=== PATIENT | female | born 1940 | race Caucasian/White ===

== ENCOUNTER 2016-06-21 14:31 | Inpatient (IN) | payer MEDICARE, OTHER ==
[2016-06-21] MEDS ORDERED: METHYLPREDNISOLONE SOD SUCC/PF 40 MG/ML VIAL IV ONE (14:46)
[2016-06-21] MEDS ORDERED: ALBUTEROL SULFATE/IPRATROPIUM 3 ML NEBU IH ONE ×2 (14:46→14:56)
[2016-06-21] MEDS ORDERED: METHYLPREDNISOLONE SOD SUCC/PF 125 MG/2 ML VIAL ONE (14:49)
--- NOTE | 2016-06-21 14:52 | ERNOTE ---
Dyspnea - General Presenting Symptoms: shortness of breath, wheezing - Patient presents with progressive worsening shortness of breath she states she's had to increase her use of her albuterol breathing nebulizer treatments at home. She also states she's had increased use of her home O2 continuous rather than just at night. Time Seen by Provider: 06/21/16 14:35 Source: patient - Immun/Allergies/Home Medications Immunizations: IMMUNIZATION HX Immunizations Up to Date Yes History of Influenza Vaccine Yes Hx Pneumococcal Vaccination Yes Allergies/Adverse Reactions: Allergies povidone-iodine [From Betadine] Allergy (Unknown, Verified 02/11/16 12:15) pruritis LEXISC[employer] SHEET soap [From Betadine] Allergy (Unknown, Verified 02/11/16 12:15) pruritis L[employer]ISC[employer] SHEET azithromycin [From Zithromax Z-Keenan] Adverse Reaction (Mild, Verified 02/11/16 12 :15) esophageal pain codeine Adverse Reaction (Mild, Verified 02/11/16 12:15) depression iron Adverse Reaction (Mild, Verified 02/11/16 12:15) sensitivity Home Medications: HOME MEDICATIONS Levothyroxine Sodium [Tirosint] 150 mcg PO DAILY 10/02/12 [Last Taken 02/10/16] Metoprolol Succinate [Toprol Xl] 150 mg PO DAILY 10/02/12 [Last Taken 02/10/16] Omeprazole [Prilosec] 20 mg PO BID 10/02/12 [Last Taken 02/10/16] Alendronate Sodium [Fosamax] 70 mg PO Q7D 07/11/14 [Last Taken 07/27/14] metFORMIN HCL [Glucophage] 500 mg PO BID 07/11/14 [Last Taken 02/11/16] Gabapentin 600 mg PO TID 12/02/15 [Last Taken Unknown] Tramadol HCl 50 mg PO Q6H PRN 12/02/15 [Last Taken Unknown] Plaquenil 200 mg PO BID 12/31/15 [Last Taken 02/10/16] ALPRAZolam [Xanax] 0.5 mg PO BID PRN 02/11/16 [Last Taken Unknown] Acetaminophen [Tylenol] 500 mg PO Q3H PRN 02/11/16 [Last Taken Unknown] Albuterol Sulfate 2.5 mg IH Q4H PRN 02/11/16 [Last Taken Unknown] Albuterol Sulfate [Ventolin HFA] 1 - 2 puff IH Q4H PRN 02/11/16 [Last Taken Unknown] Benzonatate [Tessalon Perle] 100 mg PO TID PRN 02/11/16 [Last Taken Unknown] Biotin 1,000 mcg PO DAILY 02/11/16 [Last Taken Unknown] Budesonide [Pulmicort Respules] 2 ml IH BID 02/11/16 [Last Taken Unknown] Calcium Carbonate/Vitamin D3 [Calcium 500-Vit D3 200 Tablet] 1 each PO DAILY [Last Taken Unknown] Cyanocobalamin 500 mcg PO DAILY 02/11/16 [Last Taken Unknown] Diclofenac Sodium/Misoprostol [Arthrotec 75 mg-200 Mcg Tab] 1 each PO BID [Last Taken Unknown] Lidocaine [Lidoderm 5%] 1 patch TP DAILY PRN 02/11/16 [Last Taken Unknown] Montelukast Sodium [Singulair] 10 mg PO HS 02/11/16 [Last Taken Unknown] Nystatin [Mycostatin Powder] 1 appl TP DAILY 02/11/16 [Last Taken Unknown] Fulton-3S/Dha/Epa/Fish Oil/D3 [Fulton-3 + D Softgel] 1 each PO DAILY 02/11/16 [ Last Taken Unknown] Levofloxacin [Levaquin] 500 mg PO DAILY #5 tablet 02/15/16 [Last Taken Unknown] Losartan Potassium [Cozaar] 100 mg PO DAILY #3 tablet 02/15/16 [Last Taken Unknown] predniSONE [Prednisone] 40 mg PO DAILY #8 tablet 02/15/16 [Last Taken Unknown] - History of Present Illness Narrative: States she started to cough up yellowish looking sputum and despite her on nebulizer treatments every 4 hours she feels as though she can't quite get caught up. She is also gone to using her O2 nasal cannula continuously rather than just at night which is her normal mode. Severity: moderate Treatment [employer]: albuterol Initiating event: Reports: none Frequency of episodes: Reports: occassional episodes Modifying Factors - (Improves): Reports: albuterol, oxygen Modifying Factors (Worsens): Reports: activity Review of Systems - Review of Systems Constitutional: Present: See HPI EYE: Present: no symptoms reported ENT: Present: no symptoms reported Respiratory: Present: shortness of breath, cough, wheezing Cardiology: Present: no symptoms reported Gastrointestinal/Abdominal: Present: no symptoms reported Genitourinary: Present: no symptoms reported Musculoskeletal: Present: no symptoms reported Skin: Present: no symptoms reported Neurological: Present: no symptoms reported Endocrine: Present: no symptoms reported Hematologic/Lymphatic: Present: no symptoms reported Psych: Present: no symptoms reported - Patient's Past Medical History Patient History - Medical: Anemia, Arthritis, Diabetes Type 2, GERD, Hypothyroidism, Rheumatoid Arthritis, Other Patient History - Cardiac/Respiratory: COPD Patient History - Cancer: Breast Patient History - Surgical Procedures: Appendectomy, Back Surgery, Cholecystectomy, Colonoscopy, Hysterectomy, Total Knee Replacement Patient History - Other: None LMP (females 10-50): Menopausal - Family History Mother Family History - Medical: Family History - Cardiac/Respiratory: CHF Father Family History - Medical: Family History - Cardiac/Respiratory: CVA/Stroke - Social History Living Situations: alone Abuse History: No History of abuse Psych History: No pertinent hx Smoking Status: Former smoker Alcohol Use: occasionally Drug Use: none - Immunizations Immunizations Up to Date: Yes Hx Pneumococcal Vaccination: Yes History of Influenza Vaccine: Yes Physical Exam - Physical Exam General Appearance: Present: wd/wn, alert, moderate distress Eye Exam: Normal inspection: bilateral, PERRL: bilateral Ears, Nose, Throat: Present: normal ENT inspection, H, normal pharynx Neck: Present: normal inspection, nontender Respiratory: Present: no accessory muscle use, chest nontender, rales, wheezing Cardiovascular/Chest: Present: regular rate, rhythm, no murmur, normal peripheral pulses Gastrointestinal/Abdominal: Present: normal bowel sounds, nontender, nondistended, soft, no organomegaly Rectal Exam: Present: deferred Back Exam: Present: normal inspection, normal range of motion Extremity Exam: Present: normal inspection, non-tender, no edema, normal range of motion Neurological Exam: Present: alert, oriented, normal mood/affect Skin Exam: Present: normal color, warm/dry Lymphatic Exam: Present: no adenopathy ED Progress - Results and Orders Patient's Lab Results:: I have reviewed the patient's lab results. - Vital Signs Patient's Vital Signs:: I have reviewed the patient's vital signs. Vital Signs: Vital Signs 06/21/16 14:37 Temperature 36.4 C L Pulse Rate 80 Respiratory 18 Rate Blood Pressure 195/105 O2 Sat by Pulse 94 Oximetry - X-Ray X-Ray #1 Interpretation: Reviewed by me - Progress/Reassessment Chief Complaint: Dyspnea Progress:: Unchanged Plan - Plan Plan: Patient appears to have failed her outpatient therapy at home despite aggressive pulmonary toilet by herself with oral steroids she is still significantly short of breath with wheezing. Patient will be better served to be brought into the hospital so we can continue the steroids, antibiotics and breathing treatments here. Departure Clinical Impression: COPD (chronic obstructive pulmonary disease) with acute bronchitis - Departure Disposition: [facility] Condition: Fair Referrals: Palma Hart MD [Primary Care Provider] -
[2016-06-21] MEDS ORDERED: METHYLPREDNISOLONE SOD SUCC/PF 125 MG/2 ML VIAL IV ONE (14:55)
[2016-06-21 15:05] LABS: Hematocrit 31.5 % (37.0-47.0); Hemoglobin 9.6 gm/dL (12.5-16.0); Mean Cell Volume 63.6 fl (78-100); Mean Corpuscular Hemoglobin 19.4 pg (27-31); Mean Corpuscular Hgb Conc 30.5 g/dl (32-36); Mean Platelet Volume 8.7 fl (6.0-9.5); Neutrophil # 5.8 K/mm3 (1.3-6.0); Neutrophil % 87.1 % (42-75.0); Platelet Count 202 K/mm3 (150-450); Red Blood Count 4.95 M/mm3 (4.2-5.4); White Blood Count 6.6 K/mm3 (4.0-10.5)
--- OUTSIDE RECORDS SUMMARY | 2016-06-21 15:15 | XMS REPORT | Continuity of Care Document ---
:1940 Author Organization [facility] ([facility]) [place] [address] Phone [phone] Care Team Providers Name Role Phone Dilan Morgan A Primary Care Provider [phone] Source Comments This disclosure is being made pursuant to the Care Everywhere program, applicable federal and state laws, and may not contain all informaitonavailable regarding this patient.[facility] ([facility]) Active Allergies and Adverse Reactions No Known Allergies Current Medications Not on file Active Problems Not on file Social History Tobacco Use Types Packs/Day Years Used Date Never Assessed Last Filed Vital Signs Vital Sign Reading Time Taken Blood Pressure 141/84 10/09/2008 11:10 AM CDT Pulse 54 10/09/2008 11:10 AM CDT Temperature 36.4 C (97.5 F) 10/09/2008 11:10 AM CDT Respiratory Rate 16 10/09/2008 11:10 AM CDT Height 1.627 m (5' 4.06") 10/09/2008 11:10 AM CDT Weight 85.7 kg (188 lb 15 oz) 10/09/2008 11:10 AM CDT Body Mass Index 32.37 10/09/2008 11:10 AM CDT Oxygen Saturation 94% 10/09/2008 11:10 AM CDT Plan of Care Health Maintenance Due Date Last Done Comments Hepatitis B Vaccine (1 of 3 - Primary Series) 1940 Tdap Vaccine 06/14/1950 Lipid Disorder Screening 06/14/1957 Td Vaccine 06/14/1957 Mammogram 1979 Colonoscopy 06/14/1989 Zoster Vaccine 1999 Osteoporosis Screening (DXA Bone Density) 06/14/2004 Pneumococcal Vaccine (1 of 2 - PCV13) 06/14/2004 Influenza Vaccine: Seasonal (#1) 10/26/2015 Results from Last 3 Months Not on file
[2016-06-21 15:25] LABS: ALT 17 U/L (19-67); AST 17 U/L (0-48); Albumin * 3.8 gm/dl (3.4-5.0); Alkaline Phosphatase * 50 U/L (50-170); Anion Gap 12.8 mmol/L (6.8-13.8); BUN/Creatinine Ratio 20.5 (9.0-21.6); Bilirubin, Total 0.3 mg/dL (0.0-1.1); Blood Urea Nitrogen 17 mg/dL (3-23); Ca. Corrected For Albumin 9.2 mg/dL (8.4-10.2); Calcium * 9.4 mg/dL (7.9-10.9); Carbon Dioxide 30.8 mmol/L (24-32.6); Chloride 94 mmol/L (97-106); Glucose * 134 mg/dL (70-110); Magnesium 1.4 mg/dL (1.2-2.8); Potassium 4.6 mmol/L (3.4-4.6); Sodium 133 mmol/L (132-142); Troponin I Less than 0.017 ng/ml (0.00-0.10)
--- OUTSIDE RECORDS SUMMARY | 2016-06-21 16:08 | XMS REPORT | Continuity of Care Document ---
:1940 Author Organization [facility] ([facility]) Address [place] [address] Phone [phone] Care Team Providers Name Role Phone Dilan Morgan A Primary Care Provider [phone] Source Comments This disclosure is being made pursuant to the Care Everywhere program, applicable federal and state laws, and may not contain all informaitonavailable regarding this patient.[facility] ([facility]) Active Allergies and Adverse Reactions No Known [...]
[2016-06-21] MEDS ORDERED: ALBUTEROL SULFATE 2.5 MG/3 ML VIAL.NEB IH ONE ×2 (18:28→21:48)
[2016-06-21] MEDS ORDERED: metFORMIN HCL 500 MG TABLET ONE (18:28)
[2016-06-21] MEDS: NORMAL SALINE 1,000 ML IV PRN (20:49)
[2016-06-21] MEDS: METOPROLOL SUCCINATE 100 MG TABLET.SA PO SCH (21:06)
[2016-06-21] MEDS: metFORMIN HCL 500 MG TABLET PO SCH (21:06)
[2016-06-21] MEDS: ALBUTEROL SULFATE 2.5 MG/3 ML VIAL.NEB IH PRN (21:50)
[2016-06-21] MEDS ORDERED: ACETAMINOPHEN 500 MG TABLET PO PRN (22:22)
[2016-06-21] MEDS ORDERED: ALBUTEROL SULFATE 60 PUFF INHALER IH PRN (22:29)
[2016-06-21] MEDS ORDERED: AZITHROMYCIN 250 MG TABLET PO ONE (22:30)
[2016-06-21] MEDS ORDERED: AZITHROMYCIN 250 MG TABLET ONE (22:32)
[2016-06-21] MEDS: ALPRAZolam 0.5 MG TABLET PO PRN (22:41)
[2016-06-22] MEDS: METHYLPREDNISOLONE SOD SUCC 80 MG in WATER FOR INJ.,BACTERIOSTATIC 0 ML IV SCH ×3 (00:32→19:19)
[2016-06-22] MEDS: ALBUTEROL SULFATE 2.5 MG/3 ML VIAL.NEB IH PRN ×6 (02:33→22:19)
[2016-06-22] MEDS: traMADol HCL 50 MG TABLET PO PRN ×2 (05:46→17:18)
[2016-06-22] MEDS: LEVOTHYROXINE SODIUM 150 MCG TABLET PO SCH (06:28)
[2016-06-22] MEDS: PANTOPRAZOLE SODIUM 20 MG TABLET.DR PO SCH (06:28)
[2016-06-22] MEDS ORDERED: METHYLPREDNISOLONE SOD SUCC 80 MG in WATER FOR INJ.,BACTERIOSTATIC 0 ML IV SCH (08:30)
[2016-06-22] MEDS: LOSARTAN POTASSIUM 50 MG TABLET PO SCH (08:59)
[2016-06-22] MEDS: MISOPROSTOL 200 MCG TABLET PO SCH ×2 (09:00→20:40)
[2016-06-22] MEDS: metFORMIN HCL 500 MG TABLET PO SCH ×2 (09:01→17:19)
[2016-06-22] MEDS: HYDROCHLOROTHIAZIDE 25 MG TABLET PO SCH (09:02)
[2016-06-22] MEDS: HYDROXYCHLOROQUINE SULFATE 200 MG TABLET PO SCH (09:03)
[2016-06-22] MEDS: METOPROLOL SUCCINATE 100 MG TABLET.SA PO SCH (09:03)
[2016-06-22] MEDS: DICLOFENAC SODIUM 75 MG TABLET.DR PO SCH ×2 (09:04→20:41)
--- NOTE | 2016-06-22 13:05 | HP ---
Chief Complaint - Chief Complaint Date of Service: 06/22/16 Time of Service: 12:54 Chief Complaint: increasing SOB/wheezing History of Present Illness: This is Dr. Hart dictating a late entry on Zara Chavez. I was here, yesterday, 06/21/2016, dictating the history of present illness of Zara Chavez , when the [employer] had a down time and shut down by itself from 4p.m. to 11 p.m. Zara Chavez, is a 76-year-old, white female with previous medical history of COPD , hypertension, hyperlipidemia, beta thalassemia trait, rheumatoid arthritis, who 4 days prior to admission, started having increasing shortness of breath. This was associated with cough productive of whitish to yellowish phlegm. She started getting more wheezy and she did increase her inhalers and nebulizers but they did not help. She went to emergency room where she was admitted under our acute COPD exacerbation protocol.. - Patient's Past Medical History Patient History - Medical: Anemia, Arthritis, Diabetes Type 2, GERD, Hypothyroidism, Rheumatoid Arthritis, Other Patient History - Cardiac/Respiratory: COPD Patient History - Cancer: Breast Patient History - Surgical Procedures: Appendectomy, Back Surgery, Cholecystectomy, Colonoscopy, Hysterectomy, Total Knee Replacement Patient History - Other: None LMP (females 10-50): Menopausal - Family History Mother Family History - Medical: Family History - Cardiac/Respiratory: CHF Family History - Cancer: No pertinent family hx Father Family History - Medical: Family History - Cardiac/Respiratory: CVA/Stroke Family History - Cancer: No pertinent family hx - Social History Living Situations: alone Abuse History: No History of abuse Psych History: No pertinent hx Smoking Status: Former smoker Have you smoked in the past 12 months: Yes Do you dip or chew tobacco: No Patient requests Smoking Cessation Consult: No Initiate information on Smoking Cessation: No Alcohol Use: occasionally Drug Use: none - Immunizations Immunizations Up to Date: Yes Hx Pneumococcal Vaccination: Yes History of Influenza Vaccine: Yes Review Of Systems (GEN) - Review of Systems Generalized/Overall Review: Absent: Chills, Fever EENTM: Present: No Symptoms Reported Respiratory: Present: Cough, Shortness of Breath, Wheezing Cardiac: Absent: Chest Pain, Edema, Palpitations Abdominal: Absent: Nausea, Vomiting Genitourinary: Absent: Urgency, Frequency Allergies/Adverse Reactions: Allergies Allergy/AdvReac Type Severity Reaction Status Date / Time povidone-iodine Allergy Unknown pruritis Verified 06/21/16 16:56 [From Betadine] soap [From Betadine] Allergy Unknown pruritis Verified 06/21/16 16:56 azithromycin AdvReac Mild esophageal Verified 06/21/16 16:56 [From Zithromax Z-Keenan] pain codeine AdvReac Mild depression Verified 06/21/16 16:56 iron AdvReac Mild sensitivity Verified 06/21/16 16:56 Home Medications: HOME MEDICATIONS Levothyroxine Sodium [Tirosint] 150 mcg PO DAILY 10/02/12 [Last Taken 02/10/16] Metoprolol Succinate [Toprol Xl] 150 mg PO HS 10/02/12 [Last Taken 02/10/16] Omeprazole [Prilosec] 20 mg PO BID 10/02/12 [Last Taken 02/10/16] Alendronate Sodium [Fosamax] 70 mg PO Q7D 07/11/14 [Last Taken 07/27/14] metFORMIN HCL [Glucophage] 500 mg PO BID 07/11/14 [Last Taken 02/11/16] ALPRAZolam [Xanax] 0.5 mg PO BID PRN 02/11/16 [Last Taken Unknown] Acetaminophen [Tylenol] 500 mg PO Q3H PRN 02/11/16 [Last Taken Unknown] Albuterol Sulfate 2.5 mg IH Q4H PRN 02/11/16 [Last Taken Unknown] Albuterol Sulfate [Ventolin HFA] 1 - 2 puff IH Q4H PRN 02/11/16 [Last Taken Unknown] Benzonatate [Tessalon Perle] 100 mg PO TID PRN 02/11/16 [Last Taken Unknown] Budesonide [Pulmicort Respules] 2 ml IH BID 02/11/16 [Last Taken Unknown] Calcium Carbonate/Vitamin D3 [Calcium 500-Vit D3 200 Tablet] 1 each PO DAILY [Last Taken Unknown] Cyanocobalamin 500 mcg PO DAILY 02/11/16 [Last Taken Unknown] Diclofenac Sodium/Misoprostol [Arthrotec 75 mg-200 Mcg Tab] 1 each PO BID [Last Taken Unknown] Lidocaine [Lidoderm 5%] 1 patch TP DAILY PRN 02/11/16 [Last Taken Unknown] Montelukast Sodium [Singulair] 10 mg PO HS 02/11/16 [Last Taken Unknown] Nystatin [Mycostatin Powder] 1 appl TP DAILY 02/11/16 [Last Taken Unknown] Leslie-3S/Dha/Epa/Fish Oil/D3 [Leslie-3 + D Softgel] 1 each PO DAILY 02/11/16 [ Last Taken Unknown] Gabapentin [Neurontin] 600 mg PO TID 06/22/16 [Last Taken Unknown] Hydroxychloroquine Sulfate [Plaquenil] 400 mg PO DAILY 06/22/16 [Last Taken Unknown] Olmesartan/Hydrochlorothiazide [Benicar Hct 40-25 mg Tablet] 1 each PO DAILY [Last Taken Unknown] traMADol HCL [Ultram] 50 mg PO Q6H PRN 06/22/16 [Last Taken Unknown] Exam - Exam Vital Signs: Vital Signs - Last Taken Temp 36.6 C 06/22/16 11:00 Pulse 81 06/22/16 11:00 Resp 18 06/22/16 11:00 BP 175/94 06/22/16 11:00 Pulse Ox 91 06/22/16 11:00 Constitutional: Present: Alert, Oriented x3, Cooperative, Moderate distress ENT Exam: Present: hearing grossly normal Eye Exam: bilateral eye: normal inspection, PERRL, EOMI Neck: Present: supple Back Exam: Present: normal inspection Respiratory: Present: decreased breath sounds, wheezing, expiration (prolonged) Cardiovascular/Chest: Present: regular rate, rhythm, no JVD, no murmur Abdomen: Present: Normal bowel sounds, soft, nontender, nondistended Extremity: Present: no calf tenderness, pedal edema Diagnostic Studies: Laboratory Results WBC 6.6 K/mm3 (4.0-10.5) 06/21/16 15:00 RBC 4.95 M/mm3 (4.2-5.4) 06/21/16 15:00 Hgb 9.6 gm/dL (12.5-16.0) L 06/21/16 15:00 Hct 31.5 % (37.0-47.0) L 06/21/16 15:00 MCV 63.6 fl (78-100) L 06/21/16 15:00 MCH 19.4 pg (27-31) L 06/21/16 15:00 MCHC 30.5 g/dl (32-36) L 06/21/16 15:00 RDW 16.0 % (11.5-14.0) H 06/21/16 15:00 Plt Count 202 K/mm3 (150-450) 06/21/16 15:00 MPV 8.7 fl (6.0-9.5) 06/21/16 15:00 Immature Gran % (Auto) 0.80 % (0.001-0.429) H 06/21/16 15:00 Immature Gran # (Auto) 0.05 K/mm3 (0.000-0.0310) H 06/21/16 15:00 Neutrophils % 87.1 % (42-75.0) H 06/21/16 15:00 Lymphocytes % 5.1 % (20-51) L 06/21/16 15:00 Monocytes % 6.7 % (0.0-9) 06/21/16 15:00 Eosinophils % 0.0 % (0.0-3.0) 06/21/16 15:00 Basophils % 0.3 % (0.0-1.0) 06/21/16 15:00 Nucleated RBC % 0.0 k/mm3 (0-1) 06/21/16 15:00 Neutrophils # 5.8 K/mm3 (1.3-6.0) 06/21/16 15:00 Lymphocytes # 0.3 k/mm3 (1.5-3.5) L 06/21/16 15:00 Monocytes # 0.4 k/mm3 (0.0-1.0) 06/21/16 15:00 Eosinophils # 0.0 k/mm3 (0.0-0.7) 06/21/16 15:00 Absolute Basophils 0.0 k/mm3 (0.0-0.1) 06/21/16 15:00 pCO2 47.9 mmHg (32.0-45.0) H 06/21/16 15:40 pO2 86.6 mmHg (83.0-108.0) 06/21/16 15:40 HCO3 27.7 mmol/L (21.0-28.0) 06/21/16 15:40 Total CO2 29.2 mmol/L (19.0-24.0) H 06/21/16 15:40 Base Excess 2.1 mmol/L (-2.0-3.0) 06/21/16 15:40 ABG pH 7.38 (7.35-7.45) 06/21/16 15:40 ABG O2 Sat (Measured) 96.3 % (94.0-98.0) 06/21/16 15:40 Sodium 133 mmol/L (132-142) 06/21/16 15:00 Plasma Sodium 134 mmol/L (130-142) 06/21/16 15:00 Potassium 4.6 mmol/L (3.4-4.6) 06/21/16 15:00 Chloride 94 mmol/L (97-106) L 06/21/16 15:00 Carbon Dioxide 30.8 mmol/L (24-32.6) 06/21/16 15:00 Anion Gap 12.8 mmol/L (6.8-13.8) 06/21/16 15:00 BUN 17 mg/dL (3-23) 06/21/16 15:00 Creatinine 0.83 mg/dL (0.4-1.4) 06/21/16 15:00 Est GFR (Non-Af Amer) 71 mL/min (60-130) 06/21/16 15:00 BUN/Creatinine Ratio 20.5 (9.0-21.6) 06/21/16 15:00 Random Glucose 134 mg/dL (70-110) H 06/21/16 15:00 Calcium 9.4 mg/dL (7.9-10.9) 06/21/16 15:00 Calcium Adj for Albumin 9.2 mg/dL (8.4-10.2) 06/21/16 15:00 Magnesium 1.4 mg/dL (1.2-2.8) 06/21/16 15:00 Total Bilirubin 0.3 mg/dL (0.0-1.1) 06/21/16 15:00 AST 17 U/L (0-48) 06/21/16 15:00 ALT 17 U/L (19-67) L 06/21/16 15:00 Alkaline Phosphatase 50 U/L (50-170) 06/21/16 15:00 Troponin I Less than 0.017 ng/ml (0.00-0.10) 06/21/16 15:00 Total Protein 7.0 gm/dL (6.2-8.2) 06/21/16 15:00 Albumin 3.8 gm/dl (3.4-5.0) 06/21/16 15:00 Assessment/Plan - Assessment/Plan (1) Acute exacerbation of chronic obstructive pulmonary disease (COPD) Assessment: will start IV solumedrol, IV antibiotics, and breathing treatments. Problem: Acute (2) Anemia, hemolytic, thalassemia minor Assessment: stable Problem: Chronic (3) GERD (gastroesophageal reflux disease) Assessment: will continue her home meds Problem: Chronic Qualifiers: Esophagitis presence: without esophagitis Qualified Code(s): K21.9 - Gastro -esophageal reflux disease without esophagitis (4) Hyperlipidemia Assessment: continue with home meds Problem: Chronic Qualifiers: (5) Hypertension Assessment: continue with home meds. may need to add additional BP med if not controlled. Problem: Chronic Qualifiers: Hypertension type: essential hypertension (6) Hypothyroidism Assessment: continue with home meds. Problem: Chronic Qualifiers: Hypothyroidism type: acquired
[2016-06-22] MEDS: ALPRAZolam 0.5 MG TABLET PO PRN ×2 (13:39→23:27)
--- NOTE | 2016-06-22 15:08 | PN ---
Subjective - Date and Time Seen Date: 06/22/16 Time: 15:03 Subjective Narrative: Patient is saturating only 85% on RA. She was gasping/panting just going to the BR from her bed. Objective - Review of Systems Generalized/Overall Review: Denies: Chills, Fever EENTM: Reports: No Symptoms Reported Respiratory: Reports: Cough, Shortness of Breath, Wheezing Cardiac: Denies: Chest Pain, Edema, Palpitations Abdominal: Denies: Nausea, Vomiting Genitourinary Symptoms: Denies: Urgency, Frequency - Vitals Vitals: Last Vital Signs Temp 36.6 C 06/22/16 11:00 Pulse 84 06/22/16 14:05 Resp 24 H 06/22/16 14:05 BP 175/94 06/22/16 11:00 Pulse Ox 97 06/22/16 13:57 - Exam Constitutional: Present: Alert, Oriented x3, Cooperative, Moderate distress ENT Exam: Present: hearing grossly normal Neck: Present: supple Breasts: Present: Exam deferred Respiratory: Present: decreased breath sounds, wheezing, expiration (prolonged) , No rales Cardiovascular/Chest: Present: regular rate, rhythm, no JVD, no murmur Abdomen: Present: Normal bowel sounds, soft, nontender, nondistended Extremity: Present: no calf tenderness, pedal edema Assessment/Plan - Problems/Diagnosis (1) Acute exacerbation of chronic obstructive pulmonary disease (COPD) Problem: Acute Narrative: continue with present management. will increase her solumedrol to q 6 hours. give nebs q 2 hours PRN in between her RT q 4 hours.will change her to acute status. (2) Anemia, hemolytic, thalassemia minor Problem: Chronic (3) GERD (gastroesophageal reflux disease) Problem: Chronic Qualifiers: Esophagitis presence: without esophagitis Qualified Code(s): K21.9 - Gastro -esophageal reflux disease without esophagitis (4) Hyperlipidemia Problem: Chronic Qualifiers: (5) Hypertension Problem: Chronic Qualifiers: Hypertension type: essential hypertension Qualified Code(s): I10 - Essential (primary) hypertension Narrative: will increase her metorpolol Xl to 150 mg PO qd. (6) Hypothyroidism Problem: Chronic Qualifiers: Hypothyroidism type: acquired Qualified Code(s): E03.9 - Hypothyroidism, unspecified
[2016-06-22] MEDS ORDERED: ALBUTEROL SULFATE 2.5 MG/3 ML VIAL.NEB IH ONE (18:06)
[2016-06-22] MEDS: AZITHROMYCIN 250 MG TABLET PO SCH (20:40)
[2016-06-22] MEDS: NORMAL SALINE 1,000 ML IV PRN (22:03)
[2016-06-22] MEDS: hydrALAZINE HCL 20 MG/ML VIAL IV PRN (23:27)
[2016-06-23] MEDS: METHYLPREDNISOLONE SOD SUCC 80 MG in WATER FOR INJ.,BACTERIOSTATIC 0 ML IV SCH ×4 (00:11→21:37)
[2016-06-23] MEDS: ALBUTEROL SULFATE 2.5 MG/3 ML VIAL.NEB IH PRN ×8 (00:21→23:28)
--- NOTE | 2016-06-23 03:44 | PN ---
Progess Note - Interim Narrative: 06/23/16 03:39 patient with reports of increased dyspnea on exertion. Her condition improved with nebulizer treatment, solumedrol and supplemented oxygen. BP improved after a dose of hydralazine 20mg IV x1, repeated ABG noted will continue to monitor.
[2016-06-23] MEDS: traMADol HCL 50 MG TABLET PO PRN (03:54)
[2016-06-23] MEDS: ALPRAZolam 0.5 MG TABLET PO PRN ×2 (06:46→08:14)
[2016-06-23] MEDS: PANTOPRAZOLE SODIUM 20 MG TABLET.DR PO SCH (06:47)
[2016-06-23] MEDS: LEVOTHYROXINE SODIUM 150 MCG TABLET PO SCH (06:48)
[2016-06-23] MEDS: hydrALAZINE HCL 20 MG/ML VIAL IV PRN (06:50)
[2016-06-23] MEDS: BUDESONIDE 0.5 MG/2 ML VIAL.NEB IH SCH ×2 (06:59→18:08)
[2016-06-23] MEDS ORDERED: ALPRAZolam 0.5 MG TABLET PO PRN (07:58)
[2016-06-23] MEDS: MISOPROSTOL 200 MCG TABLET PO SCH ×2 (08:04→21:39)
[2016-06-23] MEDS: METOPROLOL SUCCINATE 100 MG TABLET.SA PO SCH (08:05)
[2016-06-23] MEDS: DICLOFENAC SODIUM 75 MG TABLET.DR PO SCH ×2 (08:05→21:39)
[2016-06-23] MEDS: HYDROXYCHLOROQUINE SULFATE 200 MG TABLET PO SCH (08:06)
[2016-06-23] MEDS: LOSARTAN POTASSIUM 50 MG TABLET PO SCH (08:06)
[2016-06-23] MEDS: HYDROCHLOROTHIAZIDE 25 MG TABLET PO SCH (08:06)
[2016-06-23] MEDS: metFORMIN HCL 500 MG TABLET PO SCH ×2 (08:13→16:11)
[2016-06-23] MEDS: amLODIPine BESYLATE 5 MG TABLET PO SCH (08:13)
--- NOTE | 2016-06-23 08:58 | PN ---
Subjective - Date and Time Seen Date: 06/23/16 Time: 08:52 Subjective Narrative: Mrs. Chavez did not sleep well overnight. She reported increasing dyspnea. She was hypertensive and received 20 mg of IV hydralazine. After this dose, her blood pressure dropped to 99/63. She is not dizzy. Blood glucose has been well controlled despite SoluMedrol. She has no N/V. ABG was obtained which showed normal PCO2, but decreased PO2. No cough noted. Objective Objective Narrative: She reports dyspnea, tachypnea, increased work of breathing. - Review of Systems EENTM: Reports: No Symptoms Reported Respiratory: Reports: Shortness of Breath, Wheezing Genitourinary Symptoms: Reports: No Symptoms Reported Musculoskeletal Complaints: Reports: No Symptoms Reported Neurological: Reports: No Symptoms Reported Skin: Reports: No Symptoms Reported Endocrine: Reports: No Symptoms Reported - Vitals Vitals: Last Vital Signs Temp 36.3 C L 06/23/16 06:23 Pulse 77 06/23/16 08:13 Resp 24 H 06/23/16 07:07 BP 174/106 06/23/16 08:13 Pulse Ox 88 L 06/23/16 06:57 - Abnormal Lab Findings Abnormal Lab Findings: Abnormal Lab Results 06/23/16 Range/Units 00:05 pO2 61.4 L (83.0-108.0) mmHg Total CO2 26.6 H (19.0-24.0) mmol/L ABG O2 Sat (Measured) 91.1 L (94.0-98.0) % - Exam Constitutional: Present: Alert, Oriented x3, Cooperative, Mild distress - Related to dyspnea. ENT Exam: Present: hearing grossly normal Neck: Present: non-tender, full range of motion Respiratory: Present: decreased breath sounds - Decreased breath sounds with wheezing. Using abdominal muscles to breathe., accessory muscle use, wheezing Abdomen: Present: Normal bowel sounds, distended Extremity: Present: normal range of motion, non-tender, no pedal edema Skin Exam: Present: normal color, warm/dry Lymphatic: Present: no adenopathy Neurologic: Present: shot hole shooter II-XII nml as tested Appearance: Present: appropriate appearance, appropriate insight Eye contact: Present: good eye contact Thoughts: Present: other - Anxious. Assessment/Plan - Problems/Diagnosis (1) Acute exacerbation of chronic obstructive pulmonary disease (COPD) Problem: Acute Narrative: Continue Solumedrol 80 mg IV every 6 hours. She is currently on ceftriaxone 1g IV daily and azithromycin 250 mg po daily. Continue nebulizer treatments every 4 hours. Consider using CPAP due to increased work of breathing. Increase alprazolam to 0.5 mg TID to decrease symptoms of anxiety and air hunger. (2) GERD (gastroesophageal reflux disease) Problem: Chronic Qualifiers: Esophagitis presence: without esophagitis Qualified Code(s): K21.9 - Gastro -esophageal reflux disease without esophagitis Narrative: Protonix 20 mg po daily. (3) Hypertension Problem: Chronic Qualifiers: Hypertension type: essential hypertension Qualified Code(s): I10 - Essential (primary) hypertension Narrative: Continue losartan 100 mg po daily, metoprolol succinate 150 mg po daily, HCTZ 25 mg daily. Adding amlodipine 5 mg po daily and may titrate up. Discontinue PRN hydralazine. (4) Hypothyroidism Problem: Chronic Qualifiers: Hypothyroidism type: acquired Qualified Code(s): E03.9 - Hypothyroidism, unspecified Narrative: Levothyroxine 150 mcg daily. (5) Rheumatoid arthritis Problem: Chronic Qualifiers: Rheumatoid arthritis location: hand Rheumatoid factor presence: with rheumatoid factor Laterality: bilateral Qualified Code(s): M05.741 - Rheumatoid arthritis with rheumatoid factor of right hand without organ or systems involvement; M05.742 - Rheumatoid arthritis with rheumatoid factor of left hand without organ or systems involvement Narrative: Plaquenil 400 mg po BID. She is also using diclofenac 75 mg BID.
[2016-06-23] MEDS: ALPRAZolam 0.5 MG TABLET PO SCH ×3 (09:54→16:12)
[2016-06-23] MEDS: ENOXAPARIN SODIUM 40 MG/0.4 ML SYRG SC SCH (11:21)
[2016-06-23] MEDS ORDERED: ALPRAZolam 0.5 MG TABLET PO SCH (18:00)
[2016-06-23] MEDS ORDERED: ENALAPRILAT DIHYDRATE 1.25 MG/ML VIAL IV ONE (19:02)
[2016-06-23] MEDS ORDERED: ACETAMINOPHEN 325 MG TABLET PO PRN (19:03)
[2016-06-23] MEDS ORDERED: POLYVINYL ALCOHOL 150 DROP BTL EACHEYE PRN (19:03)
[2016-06-23] MEDS ORDERED: BISACODYL 10 MG SUPP.RECT RC PRN (19:03)
[2016-06-23] MEDS ORDERED: ONDANSETRON HCL/PF 2 MG/ML VIAL IV PRN (19:03)
[2016-06-23] MEDS ORDERED: ALBUTEROL SULFATE/IPRATROPIUM 3 ML NEBU IH PRN (19:03)
[2016-06-23] MEDS ORDERED: CODEINE PHOSPHATE/GUAIFENESIN 5 ML UDC PO PRN (19:03)
[2016-06-23] MEDS: MORPHINE SULFATE 10 MG/0.5 ML SYRINGE PO PRN ×3 (19:45→23:17)
[2016-06-23] MEDS: LORazepam 2 MG/ML DISP.SYRIN IV PRN ×3 (21:33→23:53)
[2016-06-23] MEDS: AZITHROMYCIN 250 MG TABLET PO SCH (21:39)
[2016-06-23] MEDS: SCOPOLAMINE HYDROBROMIDE 1.5 MG PATC TD SCH (21:57)
[2016-06-23] MEDS ORDERED: MORPHINE SULFATE 2 MG/ML DISP.SYRIN IV PRN (23:52)
[2016-06-24] MEDS ORDERED: LORazepam 2 MG/ML DISP.SYRIN IV ONE (00:15)
[2016-06-24] MEDS ORDERED: MORPHINE SULFATE 4 MG/ML SYRG ONE (00:51)
[2016-06-24] MEDS: MORPHINE SULFATE 2 MG/ML DISP.SYRIN IV PRN ×2 (01:00→05:08)
[2016-06-24] MEDS: LORazepam 2 MG/ML DISP.SYRIN IV PRN ×8 (01:00→18:28)
[2016-06-24] MEDS: METHYLPREDNISOLONE SOD SUCC 80 MG in WATER FOR INJ.,BACTERIOSTATIC 0 ML IV SCH ×4 (01:24→18:29)
[2016-06-24] MEDS: BUDESONIDE 0.5 MG/2 ML VIAL.NEB IH SCH ×2 (06:23→18:24)
[2016-06-24] MEDS: LEVOTHYROXINE SODIUM 150 MCG TABLET PO SCH (06:59)
[2016-06-24] MEDS: PANTOPRAZOLE SODIUM 20 MG TABLET.DR PO SCH (06:59)
[2016-06-24] MEDS: MORPHINE SULFATE 10 MG/ML SYRG IV PRN ×6 (07:16→18:28)
[2016-06-24] MEDS: NORMAL SALINE 1,000 ML IV PRN (07:20)
[2016-06-24] MEDS: LOSARTAN POTASSIUM 50 MG TABLET PO SCH (08:55)
[2016-06-24] MEDS: ENOXAPARIN SODIUM 40 MG/0.4 ML SYRG SC SCH (08:56)
[2016-06-24] MEDS: HYDROXYCHLOROQUINE SULFATE 200 MG TABLET PO SCH (08:56)
[2016-06-24] MEDS: amLODIPine BESYLATE 5 MG TABLET PO SCH (08:56)
[2016-06-24] MEDS: METOPROLOL SUCCINATE 100 MG TABLET.SA PO SCH (08:56)
[2016-06-24] MEDS: MISOPROSTOL 200 MCG TABLET PO SCH (08:56)
[2016-06-24] MEDS: DICLOFENAC SODIUM 75 MG TABLET.DR PO SCH (08:56)
[2016-06-24] MEDS: ALPRAZolam 0.5 MG TABLET PO SCH (08:56)
[2016-06-24] MEDS: HYDROCHLOROTHIAZIDE 25 MG TABLET PO SCH (08:56)
[2016-06-24] MEDS: metFORMIN HCL 500 MG TABLET PO SCH ×2 (08:56→16:08)
[2016-06-24 09:34] VITALS: BP 116/65
[2016-06-24] MEDS: ENALAPRILAT DIHYDRATE 1.25 MG/ML VIAL IV SCH ×2 (09:34→16:21)
--- NOTE | 2016-06-24 11:16 | PN ---
Subjective - Date and Time Seen Date: 06/24/16 Time: 11:12 Subjective Narrative: Patient sleeping, sedated. Objective - Review of Systems Generalized/Overall Review: Reports: No Symptoms Reported EENTM: Reports: No Symptoms Reported Respiratory: Reports: No Symptoms Reported Cardiac: Reports: No Symptoms Reported Abdominal: Reports: No Symptoms Reported Genitourinary Symptoms: Reports: No Symptoms Reported Musculoskeletal Complaints: Reports: No Symptoms Reported Neurological: Reports: No Symptoms Reported Skin: Reports: No Symptoms Reported Endocrine: Reports: No Symptoms Reported Misc: All systems neg except as marked - unobtainable due to sedation - Vitals Vitals: Last Vital Signs Temp 35.9 C L 06/23/16 11:30 Pulse 90 06/24/16 09:34 Resp 24 H 06/24/16 08:04 BP 116/65 06/24/16 09:34 Pulse Ox 94 06/24/16 08:04 - Exam Constitutional: Present: Mild distress, Somnolent Breasts: Present: Exam deferred Respiratory: Present: other - deferred Cardiovascular/Chest: Present: other - deferred Abdomen: Present: other - deferred /Rectal: Present: Exam deferred Extremity: Present: other - deferred Assessment/Plan - Problems/Diagnosis (1) Acute exacerbation of chronic obstructive pulmonary disease (COPD) Problem: Acute Narrative: with acute respiratory failure. could not not tolerate CPA/BiPAP and did not want intubation. she wanted to go for comfort cares. (2) End stage chronic obstructive pulmonary disease Problem: Acute Narrative: she wet into more acute respiratory distress using her accessory respiratory muscles. CPAP/BIPAP was started but she could not tolerate it despite antianxiety medcations.. She refused to be intubated. She chose to be comfort care. (3) Anemia, hemolytic, thalassemia minor Problem: Chronic (4) GERD (gastroesophageal reflux disease) Problem: Chronic Qualifiers: Esophagitis presence: without esophagitis Qualified Code(s): K21.9 - Gastro -esophageal reflux disease without esophagitis (5) Hyperlipidemia Problem: Chronic Qualifiers: (6) Hypertension Problem: Chronic Qualifiers: Hypertension type: essential hypertension Qualified Code(s): I10 - Essential (primary) hypertension (7) Hypothyroidism Problem: Chronic Qualifiers: Hypothyroidism type: acquired Qualified Code(s): E03.9 - Hypothyroidism, unspecified
[2016-06-24] MEDS: SCOPOLAMINE HYDROBROMIDE 1.5 MG PATC TD SCH (16:28)
--- NOTE | 2016-06-24 19:35 | DS ---
Discharge Summary - Provider Primary Care Provider: Palma Hart Attending Physician on Admission: Palma Hart - Date and Time Date of : 06/24/16 Time of : 19:09 - Diagnosis/Cause of (1) Acute exacerbation of chronic obstructive pulmonary disease (COPD) Problems: Acute - Summary Details (narrative): 76 years old female adm for copd exacerbation, hypoxemia and hypercapnia. Initial ABG, pt compensating but was using accessory muscle despite use of her anxiety medications. She was unable to tolerate Cpap and Bipap. She refused to be intubated and selected to have comfort measures, family at the bedside. as a result of COPD exacerbation, acute respiratory failure, hypoxic, hypercapnic. Attending was made aware. Procedures Performed: none - Additional Data Confirmation of as documented by pronouncing clinician: no pulse, no respirations, no heart sounds, pupils fixed and dilated Family: at bedside Additional persons at bedside: other - Nurses Attending/PCP notified: Yes Attending physician: Palma Hart Was code activated: No Autopsy requested: No Electrical Cad Designer notified: No [employer] Bank notified: Yes Advance Directives: Yes Hospice patient: Yes
[2016-06-25] MEDS ORDERED: METOPROLOL SUCCINATE PO SCH ×2 (09:00)
== END 2016-06-24 19:09 | disposition expired | DRG 190 ==
LOC: ER 14:31 → UNDOADMOB 16:05 → MS 16:05 → OBSVTOIN 06-22 12:53 → MS 06-23 20:04
PROVIDERS: ADMIT Internal Medicine; ATTEND Internal Medicine
PROC: 4A033R1 Measurement of Arterial Saturation, Peripheral, Percutaneous Approach (ICD-10-PCS; principal; 2016-06-23)
DX: J44.0 Chronic obstructive pulmonary disease with (acute) lower respiratory infection (principal); J96.02 Acute respiratory failure with hypercapnia; J96.01 Acute respiratory failure with hypoxia; J20.9 Acute bronchitis, unspecified; J44.1 Chronic obstructive pulmonary disease with (acute) exacerbation; D56.1 Beta thalassemia; I10 Essential (primary) hypertension; E78.5 Hyperlipidemia, unspecified; E03.9 Hypothyroidism, unspecified; E11.9 Type 2 diabetes mellitus without complications; Z79.84 Long term (current) use of oral hypoglycemic drugs; Z99.81 Dependence on supplemental oxygen; Z87.891 Personal history of nicotine dependence; Z85.3 Personal history of malignant neoplasm of breast
CPT/HCPCS: 36415; 36600; 71020; 80053; 82803; 83735; 84484; 85025; 93005; 94640; 96374; 99284; G0378